=== PATIENT | female | born 1945 | race Caucasian/White ===

== ENCOUNTER 2018-10-07 22:37 | Observation (INO) | payer OTHER ==
[2018-10-07 22:58] LABS: ADD MAN DIFF? NO
[2018-10-07 23:00] LABS: ABNORMAL IP MESSAGE 1; BASOPHIL # 0.1 10^3/ul (0.0-0.1); BASOPHILS % 0.8 % (0.0-2.0); EOSINOPHILS % 0.5 % (0.0-7.0); HEMATOCRIT 37.3 % (37.0-47.0); HEMOGLOBIN 11.7 g/dl (12.0-16.0); LYMPHOCYTES # 1.2 10^3/ul (0.8-2.9); LYMPHOCYTES % 14.1 % (15.0-51.0); MEAN CORPUSCULAR HEMOGLOBIN 25.5 pg (29.0-33.0); MEAN CORPUSCULAR HGB CONC 31.4 g/dl (32.0-37.0); MEAN CORPUSCULAR VOLUME 81.4 fl (82.0-101.0); MEAN PLATELET VOLUME 8.7 fl (7.4-10.4); MONOCYTE # 0.9 10^3/ul (0.3-0.9); MONOCYTES % 9.9 % (0.0-11.0); NEUTROPHIL # 6.4 10^3/ul (1.6-7.5); NEUTROPHILS % 74.1 % (39.0-77.0); PLATELET COUNT 314 10^3/UL (140-415); RED BLOOD COUNT 4.58 10^6/ul (4.20-5.40); RED CELL DISTRIBUTION WIDTH 24.5 % (11.5-14.5)
[2018-10-07 23:00] LABS: WHITE BLOOD COUNT 8.7 10^3/ul (4.8-10.8)
[2018-10-07] MEDS: DILTIAZEM 25 MG INJ IV (23:06)
[2018-10-07] MEDS: SOD CHLORIDE 0.9% 500 ML IV (23:07)
[2018-10-07] MEDS: DILTIAZEM-D5W 125MG/125ML DRIP 125 ML IV (23:16)
[2018-10-07 23:17] LABS: POSITIVE DIFF @See below
[2018-10-07 23:19] LABS: INR 1.09; PROTIME 14.2 Sec (11.9-14.9); PT RATIO 1.1
[2018-10-07 23:29] LABS: ALANINE AMINOTRANSFERASE 30 IU/L (13-69); ALBUMIN 3.8 g/dl (3.3-4.9); ALBUMIN/GLOBULIN RATIO 1.08; ALKALINE PHOSPHATASE 121 IU/L (42-121); ANION GAP 10 (5-13); ASPARTATE AMINO TRANSFERASE 37 IU/L (15-46); BILIRUBIN,INDIRECT 0.7 mg/dl (0-1.1); BILIRUBIN,TOTAL 0.7 mg/dl (0.2-1.3); BLOOD UREA NITROGEN 20 mg/dl (7-20); CARBON DIOXIDE 24 mmol/L (21-31); CHLORIDE 99 mmol/L (97-110); GLUCOSE 83 mg/dl (70-220); POTASSIUM 4.3 mmol/L (3.5-5.1); SODIUM 133 mmol/L (135-144); TOTAL PROTEIN 7.3 g/dl (6.1-8.1)
[2018-10-07 23:39] LABS: B-TYPE NATRIURETIC PEPTIDE 7630 PG/ML (0-450); TROPONIN-I 0.012 ng/ml (0.000-0.120)
[2018-10-08] MEDS ORDERED: ACETAMINOPHEN 325 MG TAB PO (01:00)
[2018-10-08] MEDS ORDERED: ONDANSETRON 4 MG INJ IV (01:00)
[2018-10-08] MEDS: APIXABAN 5 MG TABLET PO (03:57)
[2018-10-08] MEDS: METOPROLOL 25 MG TAB PO (10:33)
[2018-10-08] MEDS: DIGOXIN 500 MCG INJ IV (16:15)
[2018-10-08] MEDS ORDERED: APIXABAN 5 MG TABLET PO (21:00)
[2018-10-09] MEDS ORDERED: METOPROLOL (XL) 25 MG TAB PO (09:00)
== END 2018-10-08 17:20 | disposition home or self-care (01) ==
LOC: E/R 22:37 → TEL 10-08 00:57
DX: I48.92 Unspecified atrial flutter (principal); I48.91 Unspecified atrial fibrillation; I10 Essential (primary) hypertension; M10.9 Gout, unspecified; M19.90 Unspecified osteoarthritis, unspecified site; G89.4 Chronic pain syndrome; Z87.891 Personal history of nicotine dependence
CPT/HCPCS: 36415; 71045; 80053; 83880; 84443; 84484; 85025; 85610; 93005; 93306; 96365; 96366; 96375; 99285-25; G0378

== ENCOUNTER 2018-10-21 09:24 | Inpatient (IN) | payer OTHER ==
[2018-10-21 10:01] LABS: ADD MAN DIFF? NO
[2018-10-21 10:03] LABS: ABNORMAL IP MESSAGE 1; BASOPHILS % 0.2 % (0.0-2.0); HEMATOCRIT 42.6 % (37.0-47.0); HEMOGLOBIN 13.6 g/dl (12.0-16.0); LYMPHOCYTES # 0.8 10^3/ul (0.8-2.9); MEAN CORPUSCULAR HEMOGLOBIN 26.1 pg (29.0-33.0); MEAN CORPUSCULAR HGB CONC 31.9 g/dl (32.0-37.0); MEAN CORPUSCULAR VOLUME 81.6 fl (82.0-101.0); MEAN PLATELET VOLUME 8.9 fl (7.4-10.4); MONOCYTE # 0.9 10^3/ul (0.3-0.9); MONOCYTES % 6.6 % (0.0-11.0); NEUTROPHIL # 11.2 10^3/ul (1.6-7.5); NEUTROPHILS % 86.7 % (39.0-77.0); PLATELET COUNT 343 10^3/UL (140-415); RED BLOOD COUNT 5.22 10^6/ul (4.20-5.40); RED CELL DISTRIBUTION WIDTH 24.8 % (11.5-14.5)
[2018-10-21 10:09] LABS: POSITIVE DIFF @See below
[2018-10-21] MEDS: SODIUM CHLORIDE 0.9% 1L BAG IV* (10:19)
[2018-10-21] MEDS: CEFTRIAXONE 1 GM/50 ML (PMX) 50 ML IVPB (10:20)
[2018-10-21 10:21] LABS: ALBUMIN 3.5 g/dl (3.3-4.9); ALKALINE PHOSPHATASE 101 IU/L (42-121); ANION GAP 14 (5-13); BILIRUBIN,INDIRECT 1.4 mg/dl (0-1.1); BILIRUBIN,TOTAL 2.3 mg/dl (0.2-1.3); BLOOD UREA NITROGEN 31 mg/dl (7-20); CALCIUM 9.2 mg/dl (8.4-10.2); CARBON DIOXIDE 25 mmol/L (21-31); CHLORIDE 96 mmol/L (97-110); CREATININE 1.19 mg/dl (0.44-1.00); GLUCOSE 52 mg/dl (70-220); POTASSIUM 4.6 mmol/L (3.5-5.1); SODIUM 135 mmol/L (135-144)
[2018-10-21 10:30] LABS: INR 1.73; PROTIME 20.3 Sec (11.9-14.9); PT RATIO 1.6
[2018-10-21 10:31] LABS: PARTIAL THROMBOPLASTIN TIME 29.6 Sec (23.0-35.0)
[2018-10-21 11:10] LABS: ASPARTATE AMINO TRANSFERASE 2574 IU/L (15-46)
[2018-10-21] MEDS: AZITHROMYCIN 500MG/NS (PMX) 250 ML IVPB (11:30)
[2018-10-21] MEDS ORDERED: NACL 0.9% 3 ML SYG IV (12:00)
[2018-10-21] MEDS ORDERED: ONDANSETRON 4 MG INJ IV (12:00)
[2018-10-21] MEDS ORDERED: DOCUSATE SODIUM 100 MG CAP PO (12:00)
[2018-10-21 12:05] LABS: ALANINE AMINOTRANSFERASE 1101 IU/L (13-69)
[2018-10-21 13:50] LABS: URIC ACID 12.2 mg/dl (3.1-7.9)
[2018-10-21 13:53] LABS: LACTIC ACID 3.2 mmol/L (0.5-2.0)
[2018-10-21] MEDS: OLANZAPINE 5 MG TAB PO (14:03)
[2018-10-21] MEDS: SOD CHLORIDE 0.9% 1,000 ML IV ×2 (14:05→23:00)
[2018-10-21] MEDS ORDERED: DILTIAZEM 25 MG INJ (14:48)
[2018-10-21] MEDS: DILTIAZEM 25 MG INJ IV (14:58)
[2018-10-21] MEDS: DILTIAZEM-D5W 125MG/125ML DRIP 125 ML IV (15:40)
[2018-10-21] MEDS: PIPER-TAZO 3.375 GM IV (PMX) 100 ML IVPB ×2 (17:05→22:43)
[2018-10-21] MEDS: ACETAMINOPHEN 325 MG TAB PO (20:11)
[2018-10-21] MEDS ORDERED: morphine 4 MG/ML VIAL IV (21:00)
[2018-10-21] MEDS: APIXABAN 5 MG TABLET PO (22:42)
[2018-10-21] MEDS: METOPROLOL 25 MG TAB PO (22:43)
[2018-10-22 05:56] LABS: ADD MAN DIFF? NO
[2018-10-22 06:08] LABS: ABNORMAL IP MESSAGE 1; BASOPHILS % 0.2 % (0.0-2.0); EOSINOPHILS % 0.2 % (0.0-7.0); HEMOGLOBIN 12.2 g/dl (12.0-16.0); LYMPHOCYTES % 7.4 % (15.0-51.0); MEAN CORPUSCULAR HEMOGLOBIN 26.1 pg (29.0-33.0); MEAN CORPUSCULAR HGB CONC 32.1 g/dl (32.0-37.0); MEAN CORPUSCULAR VOLUME 81.4 fl (82.0-101.0); MEAN PLATELET VOLUME 9.1 fl (7.4-10.4); MONOCYTES % 7.6 % (0.0-11.0); NEUTROPHILS % 84.1 % (39.0-77.0); PLATELET COUNT 297 10^3/UL (140-415); RED BLOOD COUNT 4.67 10^6/ul (4.20-5.40); RED CELL DISTRIBUTION WIDTH 24.9 % (11.5-14.5)
[2018-10-22] MEDS: PANTOPRAZOLE (EC) 40 MG TAB PO (06:26)
[2018-10-22] MEDS: PIPER-TAZO 3.375 GM IV (PMX) 100 ML IVPB ×3 (06:26→21:36)
[2018-10-22 06:29] LABS: POSITIVE DIFF @See below
[2018-10-22 06:30] LABS: HEMOGLOBIN A1C 5.2 % (0-5.9)
[2018-10-22 07:11] LABS: ALANINE AMINOTRANSFERASE 796 IU/L (13-69); ALBUMIN 2.6 g/dl (3.3-4.9); ALBUMIN/GLOBULIN RATIO 0.83; ALKALINE PHOSPHATASE 104 IU/L (42-121); ANION GAP 8 (5-13); BILIRUBIN,INDIRECT 0.8 mg/dl (0-1.1); BILIRUBIN,TOTAL 0.9 mg/dl (0.2-1.3); BLOOD UREA NITROGEN 33 mg/dl (7-20); CALCIUM 8.4 mg/dl (8.4-10.2); CARBON DIOXIDE 27 mmol/L (21-31); CHLORIDE 102 mmol/L (97-110); CREATININE 1.12 mg/dl (0.44-1.00); GLUCOSE 54 mg/dl (70-220); POTASSIUM 3.7 mmol/L (3.5-5.1); SODIUM 137 mmol/L (135-144); TOTAL PROTEIN 5.7 g/dl (6.1-8.1)
[2018-10-22 07:42] LABS: ASPARTATE AMINO TRANSFERASE 1464 IU/L (15-46)
[2018-10-22] MEDS: SOD CHLORIDE 0.9% 1,000 ML IV ×3 (07:45→21:36)
[2018-10-22] MEDS: APIXABAN 5 MG TABLET PO ×2 (08:51→21:35)
[2018-10-22] MEDS: METOPROLOL 25 MG TAB PO (08:52)
[2018-10-22] MEDS: METHADONE (1 MG/1 ML PO SYG) PO (11:39)
[2018-10-22] MEDS: ZOLPIDEM 5 MG TAB PO (21:35)
[2018-10-23] MEDS: PIPER-TAZO 3.375 GM IV (PMX) 100 ML IVPB (05:33)
[2018-10-23] MEDS: PANTOPRAZOLE (EC) 40 MG TAB PO (05:33)
[2018-10-23 06:10] LABS: ADD MAN DIFF? NO
[2018-10-23 06:26] LABS: ABNORMAL IP MESSAGE 1; BASOPHILS % 0.3 % (0.0-2.0); EOSINOPHILS # 0.1 10^3/ul (0.0-0.5); EOSINOPHILS % 1.8 % (0.0-7.0); HEMATOCRIT 38.6 % (37.0-47.0); HEMOGLOBIN 12.2 g/dl (12.0-16.0); LYMPHOCYTES # 1.2 10^3/ul (0.8-2.9); MEAN CORPUSCULAR HEMOGLOBIN 25.9 pg (29.0-33.0); MEAN CORPUSCULAR HGB CONC 31.6 g/dl (32.0-37.0); MEAN PLATELET VOLUME 8.9 fl (7.4-10.4); MONOCYTE # 0.7 10^3/ul (0.3-0.9); MONOCYTES % 8.3 % (0.0-11.0); NEUTROPHIL # 5.9 10^3/ul (1.6-7.5); NEUTROPHILS % 74.3 % (39.0-77.0); PLATELET COUNT 275 10^3/UL (140-415); RED BLOOD COUNT 4.71 10^6/ul (4.20-5.40); RED CELL DISTRIBUTION WIDTH 25.3 % (11.5-14.5)
[2018-10-23 06:26] LABS: WHITE BLOOD COUNT 7.9 10^3/ul (4.8-10.8)
[2018-10-23 06:35] LABS: ALANINE AMINOTRANSFERASE 605 IU/L (13-69); ALBUMIN 2.3 g/dl (3.3-4.9); ALBUMIN/GLOBULIN RATIO 0.82; ALKALINE PHOSPHATASE 79 IU/L (42-121); ANION GAP 7 (5-13); ASPARTATE AMINO TRANSFERASE 701 IU/L (15-46); BILIRUBIN,INDIRECT 0.6 mg/dl (0-1.1); BILIRUBIN,TOTAL 0.6 mg/dl (0.2-1.3); BLOOD UREA NITROGEN 31 mg/dl (7-20); CALCIUM 8.3 mg/dl (8.4-10.2); CARBON DIOXIDE 28 mmol/L (21-31); CHLORIDE 106 mmol/L (97-110); CREATININE 1.01 mg/dl (0.44-1.00); GLUCOSE 62 mg/dl (70-220); POTASSIUM 3.5 mmol/L (3.5-5.1); SODIUM 141 mmol/L (135-144); TOTAL PROTEIN 5.1 g/dl (6.1-8.1)
[2018-10-23 06:43] LABS: POSITIVE DIFF @See below
[2018-10-23 07:07] LABS: HEPATITIS B SURFACE ANTIGEN NEGATIVE (NEGATIVE)
[2018-10-23 07:27] LABS: HEPATITIS C VIRAL ANTIBODY REACTIVE (NEGATIVE)
[2018-10-23] MEDS: APIXABAN 5 MG TABLET PO ×2 (08:15→20:44)
[2018-10-23] MEDS: METOPROLOL (XL) 25 MG TAB PO ×2 (08:16→12:25)
[2018-10-23] MEDS: SOD CHLORIDE 0.9% 1,000 ML IV (10:59)
[2018-10-23] MEDS: METHADONE (1 MG/1 ML PO SYG) PO (10:59)
[2018-10-23] MEDS: DILTIAZEM 25 MG INJ IV (12:50)
[2018-10-23] MEDS: DIGOXIN 500 MCG INJ IV (13:57)
[2018-10-23] MEDS ORDERED: QUETIAPINE 25 MG TAB PO (14:00)
[2018-10-23] MEDS: ZOLPIDEM 5 MG TAB PO (20:44)
[2018-10-24 06:11] LABS: ADD MAN DIFF? NO
[2018-10-24 06:16] LABS: ABNORMAL IP MESSAGE 1; BASOPHILS % 0.3 % (0.0-2.0); EOSINOPHILS # 0.1 10^3/ul (0.0-0.5); EOSINOPHILS % 1.8 % (0.0-7.0); HEMATOCRIT 41.3 % (37.0-47.0); HEMOGLOBIN 12.7 g/dl (12.0-16.0); LYMPHOCYTES % 13.3 % (15.0-51.0); MEAN CORPUSCULAR HEMOGLOBIN 25.9 pg (29.0-33.0); MEAN CORPUSCULAR HGB CONC 30.8 g/dl (32.0-37.0); MEAN CORPUSCULAR VOLUME 84.1 fl (82.0-101.0); MEAN PLATELET VOLUME 8.6 fl (7.4-10.4); MONOCYTE # 0.7 10^3/ul (0.3-0.9); MONOCYTES % 8.9 % (0.0-11.0); NEUTROPHIL # 5.5 10^3/ul (1.6-7.5); NEUTROPHILS % 75.3 % (39.0-77.0); PLATELET COUNT 286 10^3/UL (140-415); RED BLOOD COUNT 4.91 10^6/ul (4.20-5.40); RED CELL DISTRIBUTION WIDTH 25.4 % (11.5-14.5)
[2018-10-24 06:16] LABS: WHITE BLOOD COUNT 7.3 10^3/ul (4.8-10.8)
[2018-10-24 06:43] LABS: B-TYPE NATRIURETIC PEPTIDE 6220 PG/ML (0-450)
[2018-10-24] MEDS: PANTOPRAZOLE (EC) 40 MG TAB PO (06:43)
[2018-10-24 06:47] LABS: ALANINE AMINOTRANSFERASE 452 IU/L (13-69); ALBUMIN 2.4 g/dl (3.3-4.9); ALBUMIN/GLOBULIN RATIO 0.77; ALKALINE PHOSPHATASE 72 IU/L (42-121); ANION GAP 4 (5-13); ASPARTATE AMINO TRANSFERASE 310 IU/L (15-46); BILIRUBIN,INDIRECT 0.6 mg/dl (0-1.1); BILIRUBIN,TOTAL 0.6 mg/dl (0.2-1.3); BLOOD UREA NITROGEN 22 mg/dl (7-20); CALCIUM 8.2 mg/dl (8.4-10.2); CARBON DIOXIDE 29 mmol/L (21-31); CHLORIDE 108 mmol/L (97-110); CHOL/HDL RATIO 5.4 RATIO; CHOLESTEROL 87 mg/dl (100-200); GLUCOSE 76 mg/dl (70-220); HDL CHOLESTEROL 16 mg/dl (33-92); LDL CHOLESTEROL,CALCULATED 52 mg/dl; MAGNESIUM 1.7 mg/dl (1.7-2.5); POTASSIUM 3.4 mmol/L (3.5-5.1); SODIUM 141 mmol/L (135-144); TOTAL PROTEIN 5.5 g/dl (6.1-8.1); TRIGLYCERIDES 96 mg/dl (0-149)
[2018-10-24 07:07] LABS: POSITIVE DIFF @See below
[2018-10-24] MEDS: METHADONE (1 MG/1 ML PO SYG) PO (09:09)
[2018-10-24] MEDS: APIXABAN 5 MG TABLET PO (09:09)
[2018-10-24] MEDS: METOPROLOL (XL) 25 MG TAB PO (09:09)
[2018-10-24] MEDS: DIGOXIN 500 MCG INJ IV (12:20)
[2018-10-25] MEDS ORDERED: METHADONE 1 MG/ML (ORAL SOLN) PO (09:00)
== END 2018-10-24 17:48 | DRG 308 ==
LOC: 6WM 15:55 → E/R 09:24 → 6WM 11:30
DX: I48.91 Unspecified atrial fibrillation (principal); R65.11 Systemic inflammatory response syndrome (SIRS) of non-infectious origin with acute organ dysfunction; I50.43 Acute on chronic combined systolic (congestive) and diastolic (congestive) heart failure; G93.40 Encephalopathy, unspecified; F11.20 Opioid dependence, uncomplicated; E87.2 Acidosis; I11.0 Hypertensive heart disease with heart failure; J44.9 Chronic obstructive pulmonary disease, unspecified; M10.9 Gout, unspecified; G89.4 Chronic pain syndrome; I08.1 Rheumatic disorders of both mitral and tricuspid valves; I48.92 Unspecified atrial flutter; I42.9 Cardiomyopathy, unspecified; F17.200 Nicotine dependence, unspecified, uncomplicated; Z91.14 Patient's other noncompliance with medication regimen; Z96.651 Presence of right artificial knee joint
CPT/HCPCS: 36415; 71045; 76705; 80053; 80061; 83036; 83605; 83735; 83880; 84484; 84560; 85025; 85610; 85730; 86709; 86803; 87040-91; 87340; 93005; 96374; 96375; 97163; 97165; 97530; 99285-25